=== PATIENT | male | born 1995 | race Caucasian/White ===

== ENCOUNTER 2021-10-06 21:27 | Emergency (ER) | payer OTHER ==
[2021-10-06] MEDS ORDERED: Ketorolac 60 MG/2 ML SDV IM ONE (22:15)
== END 2021-10-06 22:39 | disposition home or self-care (01) ==
LOC: CC.ED 21:27
DX: S80.11XA Contusion of right lower leg, initial encounter (principal); Z72.0 Tobacco use; W20.8XXA Other cause of strike by thrown, projected or falling object, initial encounter
CPT/HCPCS: 73590-RT; 96372; 99283; 99283-25; J1885